=== PATIENT | male | born 1975 | race Caucasian/White ===

== ENCOUNTER → 2018-05-18 | Outpatient (CLI) | payer OTHER | LOC: CIMAGING 10:21 | PROVIDERS: ATTEND Orthopaedic Surgery | DX: M17.11 Unilateral primary osteoarthritis, right knee (principal) ==

== ENCOUNTER 2018-05-31 07:04 | Observation (INO) | payer SELFPAY ==
--- NOTE | 2018-05-31 06:15 | PDHPUP ---
History & Physical Update H&P update statement: This history and physical update is based on an assessment of the patient which was completed after admission or registration (within 24 hours), but prior to the surgery/procedure. H&P update: H&P reviewed & patient examined, no change in patient's condition since H&P completed
[~2018-05-31 07:04] MED LIST: ROPIVACAINE 0.2% 80 MG, EPINEPHrine 0.2 MG, KETOROLAC TROMETHAMINE 30 MG in SYRINGE 0 ML IU ONE; TRANEXAMIC ACID 3,000 MG in NS (SYRINGE) 50 ML IRR ONE; TRANEXAMIC ACID 3,000 MG/50 ML BAG IRR ONE; VANCOMYCIN 1 GM VIAL ONE
[2018-05-31] MEDS ORDERED: ACETAMINOPHEN 325 MG TAB PO ONE (07:22)
[2018-05-31] MEDS ORDERED: ceFAZolin 2 GM/DEXTROSE 100 ML IV ONE (07:22)
[2018-05-31] MEDS ORDERED: FAMOTIDINE 20 MG TAB PO ONE (07:22)
[2018-05-31] MEDS ORDERED: DEXAMETHASONE 4 MG/ML VIAL IVP ONE (07:22)
[2018-05-31] MEDS ORDERED: LR 1,000 ML IV ONE (07:30)
[2018-05-31] MEDS ORDERED: MIDAZOLAM 2 MG/2 ML VIAL ONE (08:56)
[2018-05-31] MEDS ORDERED: MIDAZOLAM 2 MG/2 ML VIAL IVP ONE (08:58)
--- NOTE | 2018-05-31 08:58 | PDANEPAE ---
ANE Past Medical History - Cardiovascular History Hx Hypertension: No Hx Arrhythmias: No Hx Chest Pain: No Hx Coronary Artery / Peripheral Vascular Disease: No Hx CHF / Valvular Disease: No Hx Palpitations: No - Pulmonary History Hx COPD: No Hx Asthma/Reactive Airway Disease: No Hx Recent Upper Respiratory Infection: No Hx Oxygen in Use at Home: No Hx Sleep Apnea: No Sleep Apnea Screening Result - Last Documented: Negative - Neurologic History Hx Cerebrovascular Accident: No Hx Seizures: No Hx Dementia: No - Endocrine History Hx Diabetes: No - Renal History Hx Renal Disorders: No - Liver History Hx Hepatic Disorders: No - Neurological & Psychiatric Hx Hx Neurological and Psychiatric Disorders: No - Cancer History Hx Cancer: No - Congenital Disorder History Hx Congenital Disorders: No - GI History Hx Gastrointestinal Disorders: Yes Gastrointestinal History Comment: reflux - Other Health History Other Health History: wears glasses for distance only - Chronic Pain History Chronic Pain: Yes (right knee) - Surgical History Prior Surgeries: 2017 right knee scope. 2018 left achilles tendon repair. hernia repair at 3 yr old ANE Review of Systems Review of Systems: - Exercise capacity METS (RN): 4 METS ANE Patient History - Allergies Allergies/Adverse Reactions: amoxicillin Allergy (Verified 05/19/18 10:31) Hives - Home Medications Home Medications: NK [No Known Home Meds] 05/15/18 [Last Taken Unknown] - NPO status NPO Since - Liquids (Date): 05/30/18 NPO Since - Liquids (Time): 20:00 NPO Since - Solids (Date): 05/30/18 NPO Since - Solids (Time): 20:00 - Smoking Hx Smoking Status: Never smoked - Family Anes Hx Family Hx Anesthesia Complications: none ANE Labs/Vital Signs - Vital Signs Blood Pressure: 135/104 Heart Rate: 83 Respiratory Rate: 15 O2 Sat (%): 92 Height: 180.34 cm Weight: 78.471 kg ANE Physical Exam - Airway Neck exam: FROM Mallampati Score: Class 1 Mouth exam: normal dental/mouth exam - Pulmonary Pulmonary: no respiratory distress - Cardiovascular Cardiovascular: regular rate and rhythym - ASA Status ASA Status: I ANE Anesthesia Plan Anesthesia Plan: spinal Total IV Anesthesia: Yes
[2018-05-31] MEDS ORDERED: PROPOFOL/EMULSION 500 MG/50 ML BOTTLE IV ONE (09:01)
[2018-05-31] MEDS ORDERED: ONDANSETRON 4 MG/2 ML VIAL IVP PRN ×2 (09:34→10:34)
[2018-05-31] MEDS ORDERED: HYDROCODONE/APAP 5/325 TAB PO PRN (09:34)
[2018-05-31] MEDS ORDERED: fentaNYL 100 MCG/2 ML INJ IVP PRN (09:34)
[2018-05-31] MEDS ORDERED: MEPERIDINE 25 MG/0.5 ML AMP IVP PRN (09:34)
[2018-05-31] MEDS ORDERED: ALBUTEROL 3 ML DEYVIAL IH PRN (09:34)
[2018-05-31] MEDS ORDERED: oxyCODONE IR 5 MG TAB PO PRN ×2 (09:34→10:34)
[2018-05-31] MEDS ORDERED: NALOXONE HCL 0.4 MG/ML INJ IVP PRN (09:34)
[2018-05-31] MEDS ORDERED: ACETAMINOPHEN 500 MG TAB PO PRN (09:34)
[2018-05-31] MEDS ORDERED: PROPOFOL 200 MG/20 ML VIAL ONE (09:41)
[2018-05-31] MEDS ORDERED: POLYETHYLENE GLYCOL 3350 17 GM PKT PO PRN (10:34)
[2018-05-31] MEDS ORDERED: PROMETHAZINE HCL 25 MG SUPPR PR PRN (10:34)
[2018-05-31] MEDS ORDERED: diphenhydrAMINE 25 MG CAP PO PRN (10:34)
[2018-05-31] MEDS ORDERED: CYCLOBENZAPRINE 10 MG TAB PO PRN (10:34)
[2018-05-31] MEDS ORDERED: PROMETHAZINE HCL 25 MG/ML INJ IVP PRN (10:34)
[2018-05-31] MEDS ORDERED: LACTULOSE 20 GM/30 ML UDCUP PO PRN (10:34)
[2018-05-31] MEDS ORDERED: DIPHENOXYLATE/ATROPINE LOMOTIL 1 TAB PO PRN (10:34)
[2018-05-31] MEDS ORDERED: TEMAZEPAM 15 MG CAP PO PRN (10:34)
[2018-05-31] MEDS ORDERED: BISACODYL 10 MG SUPP PR PRN (10:34)
[2018-05-31] MEDS ORDERED: METOCLOPRAMIDE 10 MG/2 ML VIAL IVP PRN (10:34)
[2018-05-31] MEDS ORDERED: MAGNESIUM HYDROXIDE 30 ML UDCUP PO PRN (10:34)
[2018-05-31] MEDS ORDERED: ONDANSETRON DISINTEGRATING 4 MG TAB PO PRN (10:34)
[2018-05-31] MEDS ORDERED: LR 1,000 ML IV SCH (11:00)
--- NOTE | 2018-05-31 11:18 | POSTANESTH ---
Post Anesthetic Evaluation Cardiovascular Status: Similar to Pre-Op Cond Respiratory Status: Similar to Pre-op Cond. Level of Consciousness/Mental Status: Mildly Sleepy, Arousable Pain Control: Adequate, Prn Tx Ordered Nausea/Vomiting Control: Adequate, Prn Tx Ordered Complications Possibly Related to Anesthesia: None Noted
--- NOTE | 2018-05-31 11:22 | POSTOPPROG ---
Post Op Note Date of Operation: 05/31/18 Surgeon: Ramya Candelario Railroad Operating Engineer: Constance Mahoney PAC Anesthesiologist: Dr. Aurelio Barbour Anesthesia: Local (Specify), Other (Specify) (adductor canal block) Pre-op Diagnosis: right knee OA Post-op Diagnosis: same Indication: right knee pain Procedure: right lateral PKA, robot assisted Findings: severe OA of right lateral knee Inf/Abcess present in the surg proc area at time of surgery?: No EBL: 50-100
[2018-05-31] MEDS ORDERED: ceFAZolin 2 GM/DEXTROSE 100 ML IV SCH (14:00)
--- NOTE | 2018-05-31 14:08 | SOAPPROG ---
FARHAT Progress Note Assessment/Plan: Assessment: s/p right lateral unicompartmental knee arthroplasty - this morning Plan: Begin d/c planning - patient may be going home today with the support of his Continue pain management - states he has hydrocodone at home and will take this for pain control Continue VTE ppx - aspirin 81 mg BID x 4 weeks, SAMM pastor, SCDs. He will continue aspirin and SAMM pastor at home Begin PT - he will need to be cleared by PT before d/c; states he has outpatient PT already scheduled 05/31/18 14:04 Subjective: Patient states he is feeling good at this time. States right knee pain is mild. He is hoping to go home today with his and friend, but states it also depends upon the weather/snow. He denies SOB, chest pain, fever, chills, nausea , vomiting. He has been able to void spontaneously. Objective: Vital Signs Temp Pulse Resp BP Pulse Ox 36.6 C 114 H 17 117/89 H 91 L 05/31/18 13:54 05/31/18 13:54 05/31/18 13:54 05/31/18 13:54 05/31/18 13:54 05/30/18 05/31/18 06/01/18 05:59 05:59 05:59 Intake Total 600 Output Total 430 Balance 170 Patient is resting comfortably in bed, no acute distress. His friend/neighbor is in the room. RLE: Wound dressings are clean, dry and intact. Calf is soft and nontender. He can actively DF and PF his right foot and great toe. Grossly NVI distally. ICD10 Worksheet Patient Problems: Problems Problem Status Onset Unilateral primary osteoarthritis, right knee Acute
[2018-05-31 15:11] VITALS: BP 124/87
--- NOTE | 2018-05-31 16:17 | PDDCSUM ---
Discharge Summary Discharge Summary: ADMISSION DIAGNOSIS: Right knee degenerative arthritis, especially lateral compartment DISCHARGE DIAGNOSIS: Right knee degenerative arthritis, especially lateral compartment OPERATION PERFORMED: May 31, 2018, Right knee lateral/unicompartmental arthroplasty, Cristi robot assisted. POSTOPERATIVE COMPLICATIONS: None CONDITION ON DISCHARGE: Improved DESCRIPTION OF HOSPITAL COURSE: The patient was admitted to the hospital on the morning of surgery. The patient tolerated the procedure well, was transferred to the recovery room and then the orthopedic floor. Postoperatively, patient was treated with multimodal DVT prophylaxis, including aspirin, SAMM hose and SCDs. Patient was seen by PT and made excellent and rapid progress with ambulation and stairs. Patient was able to void spontaneously. At the time of discharge, patient was afebrile, wound was clean and dry. Patient is walking with a walker. DISPOSITION: The patient is discharged home with the support of his and will have outpatient PT within the next 1-2 weeks. Patient may progress to full weightbearing on the right lower extremity as tolerated. He will continue with aspirin 81 mg BID for 4 weeks and SAMM hose for 2 weeks during the day for DVT prophylaxis. Patient can take Celebrex, hydrocodone, and Tylenol for pain control. Instructed patient to look at his hydrocodone to see if it is combined with Tylenol, if so then he should not take the hydrocodone and Tylenol at the same time. The patient will be seen at Dr. Candelario's office on 06-22-18. If there are any problems, patient is to call Dr. Candelario at the office.
[2018-05-31] MEDS ORDERED: ACETAMINOPHEN 325 MG TAB PO SCH (16:34)
[2018-05-31] MEDS ORDERED: ASPIRIN 81 MG CHEWABLE TAB PO SCH (21:00)
[2018-05-31] MEDS ORDERED: FAMOTIDINE 20 MG TAB PO SCH (21:00)
[2018-05-31] MEDS ORDERED: SENNOSIDES/DOCUSATE SODIUM TAB PO SCH (21:00)
--- NOTE | 2018-06-01 08:17 | GOP ---
[f rep st] OPERATIVE REPORT DATE OF OPERATION: 05/31/2018 SURGEON: Franklin Candelario MD [place] PARENT: Zainab Mahoney PA-C. ANESTHESIA: Spinal. PREOPERATIVE DIAGNOSIS: Right knee osteoarthritis. POSTOPERATIVE DIAGNOSIS: Right knee osteoarthritis. PROCEDURE PERFORMED: [place] uni-knee for right lateral compartment partial knee replacement with computer navigation and robotic assist. FINDINGS: ESTIMATED BLOOD LOSS: cc. INDICATIONS: This is a 43-year-old gender male with progressive pain of the right knee unresponsive to conservative care. Risks and benefits of surgical intervention were explained in detail. DESCRIPTION OF PROCEDURE: The patient was brought to the operating room and placed on the table in supine position. Spinal anesthesia was induced without difficulty. A pneumatic tourniquet was applied about the right proximal thigh and the leg was prepped and draped in sterile fashion. Attention was turned first to the distal aspect of the right femur. At 3 cm proximal to the lateral rise of the femur, 2 percutaneous half pins were placed for fixation of the femoral array. In a similar fashion, 2 pins were placed anterolateral on the tibia for fixation of the tibial array. External land marking and registration of the hip center was performed without difficulty. After exsanguination by elevation, the tourniquet was inflated to 250 mmHg. Incision was made from the tibial tuberosity to the superior pole of the patella. Dissection was carried out through the subcutaneous tissue to the deep fascia using Bovie electrocautery for hemostasis. Lateral parapatellar arthrotomy was carried out to the superior pole of the patella. The lateral capsule was elevated and the infrapatellar fat pad was resected. Internal femoral and tibial registration was carried out without difficulty and the femoral and tibial checkpoints were placed and verified for accuracy. Attention was turned to the femur. The foot print for the size right femoral component was cut with the 6 mm bur using the [employer] robotic system and verified for accuracy against the CT based plan. The hole was cut for the femoral post. In a similar fashion, the 6 mm bur was used to cut the foot print for the size 4 tibial component using the ELA system and verified for accuracy against the CT based plan. Attention was turned to the posterior aspect of the knee and remnants of the medial meniscus were excised. The posterior capsule was injected with ropivacaine, epinephrine and Toradol. Trial reduction was carried out and there was excellent range of motion, alignment and stability using the size 4 femoral component and the size 4 tibial component. All trials were then removed. The joint was thoroughly irrigated and carefully dried. One package of cement and 1 gram of vancomycin were mixed in the vacuum mixer and placed on the fixation surfaces of all components. The components were implanted and all excess cement was thoroughly removed. Implant placement was verified against the CT view plan and found to be excellent. The tourniquet was deflated and all bleeders were coagulated. The wound was thoroughly irrigated and closed using interrupted sutures of 2-0 Vicryl for the joint capsule. The subcu was closed with 3-0 Vicryl and the skin with 4-0 Monocryl. Dermabond and Steri-Strips were applied, followed by a compressive dressing. The patient was then moved from the operating room to the recovery room in good condition, having tolerated the procedure well. CASE CLASSIFICATION: Clean. /[id number]/MODL MTDD
== END 2018-05-31 16:51 | disposition home or self-care (01) ==
LOC: F3N 07:04
PROVIDERS: ADMIT Orthopaedic Surgery; ATTEND Orthopaedic Surgery
DX: M17.11 Unilateral primary osteoarthritis, right knee (principal)
CPT/HCPCS: 97116-GP; 97161-GP; C1713; G0378; J0171; J0690; J1100; J1885; J2250; J2704; J2795; J3370